=== PATIENT | female | born 1995 | race Caucasian/White ===

== ENCOUNTER 2016-11-14 15:45 | Emergency (ER) | payer MEDICAID ==
[~2016-11-14] VITALS: Ht 165.1 cm; Wt 60.0 kg
[2016-11-14 15:48] VITALS: BP 151/69; PULSE 130; RESP 20; TEMP 100.2; O2SAT 98
--- NOTE | 2016-11-14 15:53 | PD ---
Physical Exam Date Seen by Provider: Nov 14, 2016 Time Seen by Provider: 15:48 MDM Supervised Visit with SHERRILL: No Narrative Course 20-year-old female, 15 weeks by US, presents to the ED for evaluation of fever and back pain since last night. Endorses cough, spoke with OB who prescribed azithromycin. She took a single dose before presentation. Denies urinary symptoms. Patient states last temp was 101 at home. Took one dose of Tylenol but states that she threw it up Vitals reviewed. Patient seen in triage, awaiting priority bed placement. Kiera Sanchez Nov 14, 2016 15:53
[2016-11-14 16:00] VITALS: BP 112/68; PULSE 120; RESP 15; O2SAT 98
[2016-11-14] MEDS ORDERED: SODIUM CHLOR 0.9% 1000 ML INJ 1,000 ML IV ONE ×2 (16:18→19:30)
[2016-11-14] MEDS ORDERED: SODIUM CHLOR 0.9% 1000 ML INJ 800 ML IV ONE (16:18)
--- NOTE | 2016-11-14 16:28 | PD ---
HPI . Fever and back pain Chief Complaint: Fever Time Seen by Provider: 16:18 Travel History International Travel<30 days: No Contact w/Intl Traveler<30days: No Traveled to known affect area: No History of Present Illness HPI This patient presents with fever and low back pain. Onset was last night. MAXIMUM TEMPERATURE was 101. She also reports a sore throat and cough. The cough is been nonproductive. She tried to take Tylenol for fever but subsequently vomited the Tylenol. Pertinent history is that she is 15 weeks . Patient denies any malodorous vaginal discharge. She denies any urinary tract symptoms. [facility] Past Medical History Medical History: Denies Significant Hx Diminished Hearing: No Tetanus Vaccination: < 5 Years ?: Social History Alcohol Use: No Tobacco Use: No Substance Use: No Allergies-Medications (Allergen,Severity, Reaction): Coded Allergies: No Known Allergies (Unverified , 11/14/16) Reported Meds & Prescriptions Reported Meds & Active Scripts Active Zofran (Ondansetron HCl) 4 Mg Tab 4 Mg PO Q6HR PRN Review of Systems Except as stated in HPI: all other systems reviewed are Neg General / Constitutional: Positive: Fever, Chills HENT: Positive: Sore Throat Respiratory: Positive: Cough Gastrointestinal: Positive: Nausea, Vomiting, Diarrhea, No: Abdominal Pain Genitourinary: No: Urgency, Frequency, Dysuria, Discharge Physical Exam Narrative GENERAL: Patient is awake and alert and does not appear to be in any distress. SKIN: warm/dry. HEAD: Normocephalic. Atraumatic. EYES: Pupils equal and round. No scleral icterus. No injection or drainage. ENT: No nasal bleeding or discharge. Mucous membranes pink and moist. Oropharynx has no erythema. No tonsillar enlargement or exudate. NECK: Trachea midline. Full range of motion without pain. No cervical lymphadenopathy. CARDIOVASCULAR: Sinus tachycardia. No murmurs. RESPIRATORY: No accessory muscle use. Clear to auscultation. Breath sounds equal bilaterally. GASTROINTESTINAL: Abdomen soft. Nontender. Bowel sounds present. Nondistended. Gravid. MUSCULOSKELETAL: No obvious deformities. NEUROLOGICAL: Awake and alert. No obvious cranial nerve deficits. Motor grossly within normal limits. Normal speech. PSYCHIATRIC: Appropriate mood and affect; insight and judgment normal. Data Data Last Documented VS Vital Signs Date Time Temp Pulse Resp B/P (MAP) Pulse Ox O2 Delivery O2 Flow Rate FiO2 11/14/16 16:00 120 15 112/68 (83) 98 Room Air 11/14/16 15:48 100.2 Orders Orders Complete Blood Count With Diff (11/14/16 16:18) Comprehensive Metabolic Panel (11/14/16 16:18) Lactic Acid Sepsis Protocol (11/14/16 16:18) Urinalysis - C+S If Indicated (11/14/16 16:18) Blood Culture (11/14/16 16:18) Iv Access Insert/Monitor (11/14/16 16:18) Acetaminophen Supp (Tylenol Supp) (11/14/16 16:30) Ondansetron Inj (Zofran Inj) (11/14/16 16:30) Sodium Chlor 0.9% 1000 Ml Inj (Ns 1000 M (11/14/16 16:18) Sodium Chlor 0.9% 1000 Ml Inj (Ns 1000 M (11/14/16 16:18) Influenzae A/B Antigen (11/14/16 16:25) Heart Tones (11/14/16 16:25) Group A Rapid Strep Screen (11/14/16 17:32) Strep Culture (Group A) (11/14/16 17:35) Labs Laboratory Tests Test 11/14/16 16:20 11/14/16 17:10 White Blood Count 14.5 TH/MM3 Red Blood Count 3.94 MIL/MM3 Hemoglobin 12.0 GM/DL Hematocrit 34.4 % Mean Corpuscular Volume 87.2 FL Mean Corpuscular Hemoglobin 30.4 PG Mean Corpuscular Hemoglobin Concent 34.9 % Red Cell Distribution Width 13.4 % Platelet Count 284 TH/MM3 Mean Platelet Volume 7.6 FL Neutrophils (%) (Auto) 91.7 % Lymphocytes (%) (Auto) 3.0 % Monocytes (%) (Auto) 4.7 % Eosinophils (%) (Auto) 0.4 % Basophils (%) (Auto) 0.2 % Neutrophils # (Auto) 13.3 TH/MM3 Lymphocytes # (Auto) 0.4 TH/MM3 Monocytes # (Auto) 0.7 TH/MM3 Eosinophils # (Auto) 0.1 TH/MM3 Basophils # (Auto) 0.0 TH/MM3 CBC Comment DIFF FINAL Differential Comment Blood Urea Nitrogen 7 MG/DL Creatinine 0.45 MG/DL Random Glucose 86 MG/DL Total Protein 7.5 GM/DL Albumin 3.8 GM/DL Calcium Level 9.4 MG/DL Alkaline Phosphatase 62 U/L Aspartate Amino Transf (AST/SGOT) 14 U/L Alanine Aminotransferase (ALT/SGPT) 17 U/L Total Bilirubin 0.4 MG/DL Sodium Level 134 MEQ/L Potassium Level 3.9 MEQ/L Chloride Level 102 MEQ/L Carbon Dioxide Level 24.5 MEQ/L Anion Gap 8 MEQ/L Estimat Glomerular Filtration Rate 179 ML/MIN Lactic Acid Level 0.7 mmol/L Urine Color YELLOW Urine Turbidity CLEAR Urine pH 6.5 Urine Specific [place] 1.029 Urine Protein TRACE mg/dL Urine Glucose (UA) NEG mg/dL Urine Ketones 150 mg/dL Urine Occult Blood NEG Urine Nitrite NEG Urine Bilirubin NEG Urine Urobilinogen 2.0 MG/DL Urine Leukocyte Esterase NEG Urine WBC 1 /hpf Urine Squamous Epithelial Cells 5 /hpf Urine Mucus FEW /lpf Microscopic Urinalysis Comment CATH-CULT NOT IND MDM Medical Decision Making Medical Screen Exam Complete: Yes Emergency Medical Condition: Yes Differential Diagnosis Differential diagnosis of fever includes but is not limited to viral illness, strep throat, otitis media, pneumonia, sepsis, UTI Narrative Course This is a patient who presents with a fever. I have initiated a septic workup minus the chest x-ray. CBC & BMP Diagram 11/14/16 16:20 Total Protein 7.5, Albumin 3.8, Calcium Level 9.4, Alkaline Phosphatase 62, Aspartate Amino Transf (AST/SGOT) 14 L, Alanine Aminotransferase (ALT/SGPT) 17, Total Bilirubin 0.4 UA is negative for infection. Strep and flu screens are negative. The patient has received 1 L of fluid so far. She is still tachycardic at 130. A second bag of fluid has been ordered. Her care will be turned over to the oncoming provider pending fluids and reduction of heart rate. If needed, her OB is [place] [employer] Diagnosis Primary Impression: Fever Qualified Codes: R50.9 - Fever, unspecified Additional Impression: Qualified Codes: Z3A.15 - 15 weeks gestation of Patient Instructions: Fever in Adults (ED), General Instructions Additional Instructions: You may use Tylenol suppositories if needed to control fever. Drink lots of fluids. Continue the Zithromax. Scripts Ondansetron (Zofran) 4 Mg Tab 4 MG PO Q6HR Y for NAUSEA OR VOMITING, #10 TAB 0 Refills Prov: Pratima Núñez MD 11/14/16 Disposition: 01 DISCHARGE HOME Condition: Stable Pratima Núñez MD Nov 14, 2016 16:28
[2016-11-14] MEDS ORDERED: ACETAMINOPHEN 650 MG SUPP RECTAL ONE (16:30)
[2016-11-14] MEDS ORDERED: ONDANSETRON HCL 4 MG/2 ML VIAL IV PUSH ONE (16:30)
[2016-11-14 17:45] LABS: BLOOD, URINE NEG (NEG); COMMENT (UR) CATH-CULT NOT IND; CULTURE IF INDICATED CATH CULTURE NOT IND; GLUCOSE,URINE NEG (NEG); KETONE, URINE 150 mg/dL (NEG); MUCUS URINE FEW /lpf (OCC); NITRITE,URINE NEG (NEG); PH, URINE 6.5 (5.0-8.5); SQUAMOUS EPITHELIAL CELL URINE 5 /hpf (0-5); URINE COLOR YELLOW (YELLW/STRAW)
[2016-11-14 18:01] LABS: AUTOMATED NEUTROPHIL # 13.3 TH/MM3 (1.8-7.7); BASOPHIL % 0.2 % (0.0-2.0); EOSINOPHIL # 0.1 TH/MM3 (0-0.4); EOSINOPHIL % 0.4 % (0.0-4.0); HEMATOCRIT 34.4 % (35.0-46.0); HEMO FLAGS DIFF FINAL; LYMPHOCYTE # 0.4 TH/MM3 (1.0-4.8); MEAN CELL VOLUME 87.2 FL (80.0-100.0); MEAN CORPUSCULAR HEMOGLOBIN 30.4 PG (27.0-34.0); MEAN CORPUSCULAR HGB CONC 34.9 % (32.0-36.0); MONO % 4.7 % (0.0-8.0); NEUT % 91.7 % (16.0-70.0); PLATELET COUNT 284 TH/MM3 (150-450); RED BLOOD COUNT 3.94 MIL/MM3 (4.00-5.30); RED CELL DISTRIBUTION WIDTH 13.4 % (11.6-17.2); WHITE BLOOD COUNT 14.5 TH/MM3 (4.0-11.0)
[2016-11-14 18:18] LABS: ALT (GPT) 17 U/L (9-42); ANION GAP 8 MEQ/L (5-15); AST (GOT) 14 U/L (16-38); BICARBONATE 24.5 MEQ/L (21.0-32.0); BLOOD UREA NITROGEN 7 MG/DL (7-18); CHLORIDE 102 MEQ/L (98-107); GLOMERULAR FILTRATION RATE 179 ML/MIN (>89); POTASSIUM 3.9 MEQ/L (3.5-5.1); SODIUM (NA) 134 MEQ/L (136-145)
[2016-11-14 18:21] LABS: ALKALINE PHOSPHATASE 62 U/L (45-117); TOTAL BILIRUBIN ADULT 0.4 MG/DL (0.2-1.0)
[2016-11-14] MEDS ORDERED: ZOFR4TAB PO (18:27)
[2016-11-14 18:34] VITALS: PULSE 123; RESP 16; TEMP 99.4
--- NOTE | 2016-11-14 19:34 | PD ---
Data Data Last Documented VS Vital Signs Date Time Temp Pulse Resp B/P (MAP) Pulse Ox O2 Delivery O2 Flow Rate FiO2 11/14/16 20:27 113 18 88/51 (63) 98 Room Air 11/14/16 18:34 99.4 Orders Orders Complete Blood Count With Diff (11/14/16 16:18) Comprehensive Metabolic Panel (11/14/16 16:18) Lactic Acid Sepsis Protocol (11/14/16 16:18) Urinalysis - C+S If Indicated (11/14/16 16:18) Blood Culture (11/14/16 16:18) Iv Access Insert/Monitor (11/14/16 16:18) Acetaminophen Supp (Tylenol Supp) (11/14/16 16:30) Ondansetron Inj (Zofran Inj) (11/14/16 16:30) Sodium Chlor 0.9% 1000 Ml Inj (Ns 1000 M (11/14/16 16:18) Sodium Chlor 0.9% 1000 Ml Inj (Ns 1000 M (11/14/16 16:18) Influenzae A/B Antigen (11/14/16 16:25) Heart Tones (11/14/16 16:25) Group A Rapid Strep Screen (11/14/16 17:32) Strep Culture (Group A) (11/14/16 17:35) Sodium Chlor 0.9% 1000 Ml Inj (Ns 1000 M (11/14/16 19:30) Electrocardiogram (11/14/16 ) Labs Laboratory Tests Test 11/14/16 16:20 11/14/16 17:10 White Blood Count 14.5 TH/MM3 Red Blood Count 3.94 MIL/MM3 Hemoglobin 12.0 GM/DL Hematocrit 34.4 % Mean Corpuscular Volume 87.2 FL Mean Corpuscular Hemoglobin 30.4 PG Mean Corpuscular Hemoglobin Concent 34.9 % Red Cell Distribution Width 13.4 % Platelet Count 284 TH/MM3 Mean Platelet Volume 7.6 FL Neutrophils (%) (Auto) 91.7 % Lymphocytes (%) (Auto) 3.0 % Monocytes (%) (Auto) 4.7 % Eosinophils (%) (Auto) 0.4 % Basophils (%) (Auto) 0.2 % Neutrophils # (Auto) 13.3 TH/MM3 Lymphocytes # (Auto) 0.4 TH/MM3 Monocytes # (Auto) 0.7 TH/MM3 Eosinophils # (Auto) 0.1 TH/MM3 Basophils # (Auto) 0.0 TH/MM3 CBC Comment DIFF FINAL Differential Comment Blood Urea Nitrogen 7 MG/DL Creatinine 0.45 MG/DL Random Glucose 86 MG/DL Total Protein 7.5 GM/DL Albumin 3.8 GM/DL Calcium Level 9.4 MG/DL Alkaline Phosphatase 62 U/L Aspartate Amino Transf (AST/SGOT) 14 U/L Alanine Aminotransferase (ALT/SGPT) 17 U/L Total Bilirubin 0.4 MG/DL Sodium Level 134 MEQ/L Potassium Level 3.9 MEQ/L Chloride Level 102 MEQ/L Carbon Dioxide Level 24.5 MEQ/L Anion Gap 8 MEQ/L Estimat Glomerular Filtration Rate 179 ML/MIN Lactic Acid Level 0.7 mmol/L Urine Color YELLOW Urine Turbidity CLEAR Urine pH 6.5 Urine Specific [place] 1.029 Urine Protein TRACE mg/dL Urine Glucose (UA) NEG mg/dL Urine Ketones 150 mg/dL Urine Occult Blood NEG Urine Nitrite NEG Urine Bilirubin NEG Urine Urobilinogen 2.0 MG/DL Urine Leukocyte Esterase NEG Urine WBC 1 /hpf Urine Squamous Epithelial Cells 5 /hpf Urine Mucus FEW /lpf Microscopic Urinalysis Comment CATH-CULT NOT IND MDM Supervised Visit with SHERRILL: No Interpretation(s) My review of EKG: Sinus tachycardia rate of 116, normal axis, normal intervals, nonspecific T-wave changes, no definite evidence of acute ischemia. CBC remarkable for mild leukocytosis. CMP generally unremarkable. UA remarkable for some ketones, otherwise negative. Narrative Course 20-year-old young woman with cough cold symptoms fever and tachycardia. Looks well. I don't see any evidence of DVT or PE. She looks better. Heart rate still 1 teens to 120s. She appears well-hydrated. She is on antibiotics already. I think she stay for discharge. Recommend she follow up closely with her OB doctor on Wednesday. I also cautioned them that if she is worsening at all , to have a lower threshold for returning to the emergency department. Patient and family are agreeable. Diagnosis Primary Impression: Fever Qualified Codes: R50.9 - Fever, unspecified Additional Impression: Qualified Codes: Z3A.15 - 15 weeks gestation of Patient Instructions: General Instructions, Fever in Adults (ED) Departure Forms: Tests/Procedures Additional Instruction: You may use Tylenol suppositories if needed to control fever. Drink lots of fluids. Continue the Zithromax. Scripts Ondansetron (Zofran) 4 Mg Tab 4 MG PO Q6HR Y for NAUSEA OR VOMITING, #10 TAB 0 Refills Prov: Pratima Núñez MD 11/14/16 Disposition: 01 DISCHARGE HOME Condition: Stable Dimitri Peña MD Nov 14, 2016 19:34
[2016-11-14 20:27] VITALS: BP 88/51; PULSE 113; RESP 18; O2SAT 98
--- NOTE | 2016-11-14 22:45 | EKG ---
Date Performed: 11/14/2016 Time Performed: 19:30:37 PTAGE: 20 years EKG: SINUS TACHYCARDIA NONSPECIFIC T-WAVE ABNORMALITY ABNORMAL ECG NO PREVIOUS TRACING DOCTOR: Markus Orellana Interpretating Date/Time 11/14/2016 22:44:23
== END 2016-11-14 20:38 | disposition home or self-care (01) ==
LOC: NEPC 15:45
DX: O26.892 Other specified pregnancy related conditions, second trimester (principal); R50.9 Fever, unspecified; J02.9 Acute pharyngitis, unspecified; R05 Cough; R11.2 Nausea with vomiting, unspecified; R19.7 Diarrhea, unspecified; R00.0 Tachycardia, unspecified; M54.5 Low back pain; Z3A.15 15 weeks gestation of pregnancy
CPT/HCPCS: 80053; 81001; 83605; 85025; 87040; 87081; 87804; 87880; 93005; 96361; 96374; 99284; J2405; J7030

== ENCOUNTER 2017-04-15 16:41 | Emergency (ER) | payer MEDICAID ==
[~2017-04-15 16:41] MED LIST: ZOFR4TAB PO
[2017-04-15 17:38] VITALS: TEMP 98.1
[2017-04-15 17:39] VITALS: BP 119/68; PULSE 85; RESP 16
--- NOTE | 2017-04-15 18:13 | PD ---
HPI Chief Complaint cramping, hip pain Date Seen: Apr 15, 2017 Time Seen: 18:08 Travel History International Travel<30 Days: No Contact w/Intl Traveler<30Days: No Known Affected Area: No History of Present Illness HPI 21y/o G1 @ 36.3wks. She has PNC with Dr. Beckford. She presents today reporting 3d of cramping and pain in her hips today. She denies ctx, LOF, or VB. +FM. Weeks Gestation: 36 Para: 0 : 1 History Past Medical History Medical History: Denies Significant Hx Past Surgical History Narrative Surgical hand surgery wisdom teeth extraction Family History Family History: Negative Social History Alcohol Use: No Tobacco Use: No Substance Abuse: No Allergies-Medications (Allergen,Severity, Reaction): Coded Allergies: No Known Allergies (Unverified , 11/14/16) Home Meds Active Scripts Ondansetron (Zofran) 4 Mg Tab, 4 MG PO Q6HR Y for NAUSEA OR VOMITING, #10 TAB 0 Refills Prov:Pratima Núñez MD 11/14/16 Review of Systems Except as stated in HPI: all other systems reviewed are Neg Physical Exam Vital Signs Date Time Temp Pulse Resp B/P (MAP) Pulse Ox O2 Delivery O2 Flow Rate FiO2 04/15/17 17:39 85 119/68 (85) 04/15/17 17:39 16 04/15/17 17:38 98.1 Narrative General: well developed, well nourished, no acute distress HEENT: normocephalic atraumatic, extraocular movements intact, neck supple Abdomen: soft, gravid, nontender, nondistended Uterus: fundus near term Extremities: full range of motion Skin: normal coloration, no rashes, no suspicious skin lesions noted Neurologic: cranial nerves 2-12 grossly intact, normal muscle tone, normal gait Psychiatric: normal mood and affect, appropriate FHTs: 130s, +accels, no decels, moderate variability, reactive [place]: ctx q4m (not felt by pt) Cvx: 0.5/50/-3 Data Data Vital Signs Reviewed: Yes Orders Orders Vital Signs (Adult) .ON ADMISSION (04/15/17 17:25) ^ Labor Status (04/15/17 17:25) Urinalysis - C+S If Indicated (04/15/17 17:25) ^ Non Stress Test (04/15/17 17:25) MDM Plan 21y/o G1 @ 36.3wks with cramping. -- FHTs cat 1 -- toco with ctx q3-4m -- cvx 0.5/50/-3 -- UA neg for UTI Dx: abeba reina ctx Dispo: d/c home with precautions Diagnosis Diagnosis: Primary Impression: 36 weeks gestation of Additional Impression: Cramping affecting , antepartum Will Santo MD Apr 15, 2017 18:13
== END 2017-04-15 18:35 | disposition home or self-care (01) ==
LOC: HOBED 16:41
DX: O47.03 False labor before 37 completed weeks of gestation, third trimester (principal); Z3A.36 36 weeks gestation of pregnancy
CPT/HCPCS: 59025

== ENCOUNTER 2017-05-12 17:41 | Inpatient (IN) | payer MEDICAID ==
[~2017-05-12] VITALS: Ht 165.1 cm; Wt 79.8 kg
[2017-05-12] MEDS ORDERED: SODIUM CHLOR 0.9% 1000 ML INJ 1,000 ML OTHER PRN (17:56)
[2017-05-12] MEDS ORDERED: LACTATED RINGER'S 1000 ML INJ 1,000 ML IV PRN (17:56)
[2017-05-12] MEDS ORDERED: OXYTOCIN 30 UNITS-500ML PREMIX 500 ML IV ONE (18:00)
[2017-05-12] MEDS ORDERED: LIDOCAINE HCL 1% 50 ML VIAL I-DERMAL PRN (18:00)
[2017-05-12] MEDS ORDERED: LIDOCAINE HCL 1% 50 ML VIAL INFIL PRN (18:00)
[2017-05-12] MEDS ORDERED: DINOPROSTONE 10 MG VAG INSERT VAGINAL ONE (18:00)
[2017-05-12] MEDS ORDERED: CITRIC ACID-SODIUM CITRATE LIQ 30 ML UDC PO SCH (18:00)
[2017-05-12] MEDS ORDERED: SODIUM CHLORID 0.9% 500 ML INJ 500 ML IV PRN (18:00)
[2017-05-12] MEDS ORDERED: MINERAL OIL 10 ML VIAL TOPICAL PRN (18:00)
[2017-05-12] MEDS ORDERED: SODIUM CHLORIDE 0.9% FLUSH 10 ML FLUSH IV FLUSH PRN (18:00)
[2017-05-12] MEDS ORDERED: ONDANSETRON HCL 4 MG/2 ML VIAL IV PUSH PRN (18:00)
[2017-05-12] MEDS: LACTATED RINGER'S 1000 ML INJ 1,000 ML IV SCH ×2 (18:10→23:21)
[2017-05-12] MEDS ORDERED: SODIUM CHLOR 0.9% 1000 ML INJ 1,000 ML IV PRN (18:16)
[2017-05-12 18:18] VITALS: BP 77/54; PULSE 75
[2017-05-12 18:19] VITALS: RESP 20; TEMP 98.4
[2017-05-12] MEDS ORDERED: PREN29TA PO (18:51)
[2017-05-12 19:07] LABS: AUTOMATED NEUTROPHIL # 10.6 TH/MM3 (1.8-7.7); BASOPHIL # 0.1 TH/MM3 (0-0.2); BASOPHIL % 0.4 % (0.0-2.0); EOSINOPHIL # 0.1 TH/MM3 (0-0.4); EOSINOPHIL % 0.5 % (0.0-4.0); HEMOGLOBIN 11.3 GM/DL (11.6-15.3); LYMPH % 16.9 % (9.0-44.0); LYMPHOCYTE # 2.4 TH/MM3 (1.0-4.8); MEAN CELL VOLUME 86.8 FL (80.0-100.0); MEAN CORPUSCULAR HEMOGLOBIN 29.7 PG (27.0-34.0); MEAN CORPUSCULAR HGB CONC 34.2 % (32.0-36.0); MEAN PLATELET VOLUME 7.9 FL (7.0-11.0); MONO % 6.7 % (0.0-8.0); MONOCYTE # 0.9 TH/MM3 (0-0.9); NEUT % 75.5 % (16.0-70.0); PLATELET COUNT 333 TH/MM3 (150-450); RED CELL DISTRIBUTION WIDTH 14.4 % (11.6-17.2)
[2017-05-12 19:15] LABS: AMORPHOUS SEDIMENT, URINE RARE; BACTERIA, URINE RARE /hpf; BILIRUBIN, URINE NEG (NEG); BLOOD, URINE NEG (NEG); GLUCOSE,URINE NEG (NEG); KETONE, URINE NEG (NEG); MUCUS URINE FEW /lpf (OCC); NITRITE,URINE NEG (NEG); SQUAMOUS EPITHELIAL CELL URINE 12 /hpf (0-5); URINE COLOR YELLOW (YELLW/STRAW); URINE LEUKOCYTE ESTERASE MOD (NEG)
[2017-05-12] MEDS: SODIUM CHLORIDE 0.9% FLUSH 10 ML FLUSH IV FLUSH SCH (19:45)
[2017-05-12 23:20] VITALS: BP 132/65; PULSE 79
[2017-05-12 23:21] VITALS: RESP 17; TEMP 98
[2017-05-13] VITALS (19 sets, daily range): BP systolic 104–126; BP diastolic 46–63; PULSE 57–66; RESP 16–19; TEMP 97.6–98.4
--- NOTE | 2017-05-13 08:17 | MH ---
cc: Kathi Beckford MD DATE OF ADMISSION: 05/12/2017 HISTORY OF PRESENT ILLNESS: She is 21 years old, 1, para 0 intrauterine at 40 weeks and 2 days. On ultrasound today, echogenic amniotic fluid, questionable for meconium, as well as echogenic material within the stomach and bowels on ultrasound. care has been with [place] [employer], unremarkable. Blood type is AB positive. She is group B strep negative. GCT was 109. PAST MEDICAL HISTORY: She denies hypertension, diabetes or asthma. PAST SURGICAL HISTORY: She had hand surgery and wisdom teeth removed. MEDICATIONS: She takes vitamins and Valtrex. ALLERGIES: SHE HAS NO KNOWN DRUG ALLERGIES. PHYSICAL EXAMINATION: VITAL SIGNS: Blood pressure is 110/62. She is 176 pounds. HEAD: Within normal limits. HEART: Within normal limits. CHEST: Within normal limits. LUNGS: Within normal limits. ABDOMEN: Soft, nontender, gravid. PELVIC: She is 1 cm dilated, 50% effaced, -1 station. EXTREMITIES: No edema, cyanosis, clubbing, nontender. ASSESSMENT AND PLAN: She is 21 years old, 1, para 0 intrauterine at 40 weeks and 2 days with echogenic amniotic fluid and echogenic material within the bowels, questionable for meconium, post-dates. Risks, benefits, alternatives of Cervidil induction have been explained to the patient. All of her questions have been answered and she will be admitted at 6 p.m. for Cervidil induction. MD GRANT Carreon/SB , 04:02 PM , 04:18 PM
--- NOTE | 2017-05-13 08:32 | HHI.PR ---
R&D ENGINEER Note Note S: doing well, some cramping, continued leakage of clear fluid O: Cervix: 1/60/-2/firm/mid = BS 5 FHTs: 130s moderate variability, accelerations present, no decelerations TOCO: rare contractions A/P: 21 yo G1 at 40w3d by L/11 here for IOL for suspected meconium and echogenic bowel on US yesterday? 1. IUP: Cat 1 tracing, continuous EFM and TOCO - Cephalic, GBS neg, EFW 7.5lbs 2. IOL: s/p cervidil overnight, s/p SROM today (0700, clear), BS of 5, continue cervical ripening with PO henrryo Yang Pinzon MD May 13, 2017 08:32
[2017-05-13] MEDS ORDERED: MISOPROSTOL 100 MCG TAB PO SCH (08:45)
[2017-05-13] MEDS ORDERED: PILL SPLITTER OTHER PRN (09:00)
[2017-05-13] MEDS: SODIUM CHLORIDE 0.9% FLUSH 10 ML FLUSH IV FLUSH SCH ×2 (09:00→21:37)
[2017-05-13] MEDS: MISOPROSTOL 25 MCG TAB PO SCH ×4 (09:02→21:00)
[2017-05-13] MEDS: LACTATED RINGER'S 1000 ML INJ 1,000 ML IV SCH (11:45)
--- NOTE | 2017-05-13 18:04 | HHI.PR ---
AUTOMATIC EDGER Note Note Care update: Spoke to nursing around 30 minutes ago, pt slightly more thinned out ~70-80%, still 1-2cm, agnes infrequently, category 1 tracing, will continue with 3rd dose of PO miso and then begin pit following this. Yang Pinzon MD May 13, 2017 18:04
[2017-05-13] MEDS ORDERED: OXYTOCIN 30 UNITS-500ML PREMIX 500 ML IV PRN (18:15)
[2017-05-14] VITALS (49 sets, daily range): BP systolic 89–134; BP diastolic 56–90; PULSE 20–243; RESP 17–20; TEMP 97.6–99.2; O2SAT 99–100
[2017-05-14] MEDS: LACTATED RINGER'S 1000 ML INJ 1,000 ML IV SCH ×2 (02:12→06:59)
[2017-05-14] MEDS ORDERED: fentaNYL 2MCG-BUPIV 0.125% INJ 100 ML ONE (03:38)
[2017-05-14] MEDS ORDERED: ePHEDrine/NS 25 MG/5 ML SYRINGE ONE (03:38)
[2017-05-14] MEDS ORDERED: NO SYSTEM NARCOTICS PRN (04:00)
[2017-05-14] MEDS ORDERED: fentaNYL 2MCG-BUPIV 0.125% 100 ML EPIDURAL SCH (04:00)
[2017-05-14] MEDS ORDERED: DO NOT ADMINISTER ANTICOAGULANTS PRN (04:00)
[2017-05-14] MEDS ORDERED: ePHEDrine/NS 25 MG/5 ML SYRINGE IV PUSH PRN (04:45)
--- NOTE | 2017-05-14 08:15 | PD.LABORPN ---
Subjective Subjective pt comfortable with epidural, on pitocin, agnes well Objective Vital Signs Vital Signs Date Time Temp Pulse Resp B/P (MAP) Pulse Ox O2 Delivery O2 Flow Rate FiO2 05/14/17 07:31 62 100/64 (76) 05/14/17 07:14 98.3 18 05/14/17 07:00 61 114/69 (84) 05/14/17 06:30 62 108/62 (77) 05/14/17 06:00 56 105/57 (73) 05/14/17 05:30 68 111/90 (97) 05/14/17 05:00 59 116/65 (82) 05/14/17 04:38 18 05/14/17 04:30 68 119/68 (85) 05/14/17 04:26 98.1 17 05/14/17 04:25 69 05/14/17 04:25 99 05/14/17 04:25 88 124/69 (87) 05/14/17 04:20 71 120/75 (90) 05/14/17 04:20 100 05/14/17 04:20 73 05/14/17 04:15 76 134/74 (94) 05/14/17 04:15 87 100 05/14/17 04:11 88 05/14/17 04:10 73 99 05/14/17 04:06 80 134/77 (96) 05/14/17 04:05 99 05/14/17 04:05 71 05/14/17 04:00 66 124/75 (91) 05/14/17 04:00 68 05/14/17 04:00 100 05/14/17 03:57 67 124/72 (89) 05/14/17 03:54 61 118/63 (81) 05/14/17 02:21 98.0 Objective Pelvic Exam: Cervix: [-] Dilatation: [-] 3-4 Effacement: [-] 80 Station: [-] -2 per RN Presentation: [-] vtx Membranes: [intact or ruptured] srom yest 0700 Uterine Contractions: [-] q 3-4min FHT's: Category: [-] 1 Baseline: [-] Reactive: [-] Variability: [-] good Decels: [-] Weeks Gestation: 40 Gest Age Assessed Date: May 14, 2017 Gest Age Assessed Time: 08:13 Pt started active labor?: Yes Active labor start date: May 13, 2017 Active labor start time: 08:13 Medical induction of labor?: Yes Medical induction start date: May 12, 2017 Medical induction start time: 21:00 Artificial rupture of membrane: No Assessment/Plan Problem List: (1) 40 weeks gestation of ICD Codes: Z3A.40 - 40 weeks gestation of Assessment and Plan IUP at 40+ wks with echogenic amniotic fluid, echogenic bowel on US s/p cervidil , misoprostil, now on pit with epid, agnes GBBS neg anticipated Kathi Beckford MD May 14, 2017 08:15
[2017-05-14] MEDS: SODIUM CHLORIDE 0.9% FLUSH 10 ML FLUSH IV FLUSH SCH (09:00)
--- NOTE | 2017-05-14 09:47 | PD.LABORPN ---
Subjective Subjective comfortable with epidural Objective Vital Signs Vital Signs Date Time Temp Pulse Resp B/P (MAP) Pulse Ox O2 Delivery O2 Flow Rate FiO2 05/14/17 09:14 98.0 05/14/17 09:14 18 05/14/17 09:00 52 109/58 (75) 05/14/17 08:30 64 113/74 (87) 05/14/17 08:11 18 05/14/17 08:00 61 107/57 (74) 05/14/17 07:31 62 100/64 (76) 05/14/17 07:14 98.3 18 05/14/17 07:00 61 114/69 (84) 05/14/17 06:30 62 108/62 (77) 05/14/17 06:00 56 105/57 (73) 05/14/17 05:30 68 111/90 (97) 05/14/17 05:00 59 116/65 (82) 05/14/17 04:38 18 05/14/17 04:30 68 119/68 (85) 05/14/17 04:26 98.1 17 05/14/17 04:25 69 05/14/17 04:25 99 05/14/17 04:25 88 124/69 (87) 05/14/17 04:20 71 120/75 (90) 05/14/17 04:20 100 05/14/17 04:20 73 05/14/17 04:15 76 134/74 (94) 05/14/17 04:15 87 100 05/14/17 04:11 88 05/14/17 04:10 73 99 05/14/17 04:06 80 134/77 (96) 05/14/17 04:05 99 05/14/17 04:05 71 05/14/17 04:00 66 124/75 (91) 05/14/17 04:00 68 05/14/17 04:00 100 05/14/17 03:57 67 124/72 (89) 05/14/17 03:54 61 118/63 (81) 05/14/17 02:21 98.0 Objective strip category 1 rim EFW 7 1/2 pelvis clincially adequate UC regular on pitocin anticipate Weeks Gestation: 40 Gest Age Assessed Date: May 14, 2017 Gest Age Assessed Time: 08:13 Pt started active labor?: Yes Active labor start date: May 13, 2017 Active labor start time: 08:13 Medical induction of labor?: Yes Medical induction start date: May 12, 2017 Medical induction start time: 21:00 Artificial rupture of membrane: No Assessment/Plan Problem List: (1) 40 weeks gestation of ICD Codes: Z3A.40 - 40 weeks gestation of Makenzie Davenport MD May 14, 2017 09:47
[2017-05-14] MEDS ORDERED: BUPIVACAINE HCL PF 0.25% 10 ML VIAL ONE (12:35)
[2017-05-14] MEDS ORDERED: LIDOCAINE HCL 1% PF 5 ML AMPULE ONE (13:28)
[2017-05-14] MEDS ORDERED: MEPERIDINE HCL 50 MG/ML VIAL ONE (13:28)
--- NOTE | 2017-05-14 13:49 | PD.OB.DELI ---
Weeks gestation: 40 Gest age assessed date: May 14, 2017 Gest age assessed time: 08:13 Pt started active labor?: Yes Active labor start date: May 13, 2017 Active labor start time: 08:13 Medical induction of labor?: Yes Medical induction start date: May 12, 2017 Medical induction start time: 21:00 Artificial rupture of membrane: No Anesthesia: Epidural Episiotomy: Midline Vaginal Delivery: Normal, Vacuum Presentation: Occiput anterior Nuchal Cord: None Delayed cord clamping (45 sec): Yes : Male Delivery date: May 14, 2017 Delivery time: 13:47 One Minute : 7 Five Minute : 9 Weight: ~7 1/2 Placenta: Spontaneous delivery Laceration: 4 deg, Into rectum Repair: Vicryl interrupted, Vicryl running Estimated blood loss: 200 Additional Information terminal meconium straight forward fourth degree repair Makenzie Davenport MD May 14, 2017 13:49
[2017-05-14] MEDS ORDERED: WITCH HAZEL 50%/GLYCERIN 12.5% 40 PAD JAR TOPICAL PRN (14:00)
[2017-05-14] MEDS ORDERED: ONDANSETRON ODT 4 MG TAB PO PRN (14:00)
[2017-05-14] MEDS ORDERED: ALUMINUM/MAGNESIUM/SIMETH 30 ML CUP PO PRN (14:00)
[2017-05-14] MEDS ORDERED: SODIUM CHLORIDE 0.9% FLUSH 10 ML FLUSH IV FLUSH PRN (14:00)
[2017-05-14] MEDS ORDERED: OXYTOCIN 30 UNITS-500ML PREMIX 500 ML IV SCH (14:00)
[2017-05-14] MEDS ORDERED: BENZOCAINE 20% TOPICAL SPRAY 60 ML CAN TOPICAL PRN (14:00)
[2017-05-14] MEDS ORDERED: DIPHTH/TETANUS/ACEL PERTUSSIS (BOOSTER) 0.5 ML VIAL/PFS IM ONE (16:00)
[2017-05-14] MEDS ORDERED: MEASLES, MUMPS, RUBELLA VACCINE 0.5 ML VIAL SQ ONE (16:00)
[2017-05-14] MEDS: ACETAMINOPHEN 325 MG TAB PO PRN (18:10)
[2017-05-14] MEDS: IBUPROFEN 800 MG TAB PO PRN (18:10)
[2017-05-14] MEDS ORDERED: ZOLPIDEM TARTRATE 5 MG TAB PO PRN (21:00)
[2017-05-14] MEDS ORDERED: SODIUM CHLORIDE 0.9% FLUSH 10 ML FLUSH IV FLUSH SCH (21:00)
[2017-05-15] MEDS: IBUPROFEN 800 MG TAB PO PRN ×2 (02:17→19:07)
[2017-05-15] MEDS: ACETAMINOPHEN 325 MG TAB PO PRN ×2 (02:18→19:06)
[2017-05-15 08:00] VITALS: BP 115/73; PULSE 91; RESP 20; TEMP 98.1
--- NOTE | 2017-05-15 12:00 | HHI.OB ---
Subjective Post Day: 1 Remarks Doing well baby is fine Tolerating diet Voiding well Pain is fairly well controlled Objective Vitals/I&O Vital Signs Date Time Temp Pulse Resp B/P (MAP) Pulse Ox O2 Delivery O2 Flow Rate FiO2 05/15/17 08:00 98.1 91 20 115/73 (87) 05/14/17 20:30 98.4 103 18 119/67 (84) 05/14/17 16:30 97.6 69 20 05/14/17 16:30 118/67 (84) 05/14/17 16:00 97.6 20 20 118/67 (84) 99 05/14/17 16:00 69 05/14/17 15:38 18 05/14/17 15:31 87 113/64 (80) 05/14/17 15:16 67 114/79 (91) 05/14/17 15:00 90 112/78 (89) 05/14/17 14:45 75 114/66 (82) 05/14/17 14:30 99.2 05/14/17 14:30 84 89/57 (68) 05/14/17 14:30 18 05/14/17 14:15 86 114/72 (86) 05/14/17 14:02 18 05/14/17 14:01 82 95/65 (75) 05/14/17 13:49 91 114/71 (85) 05/14/17 13:48 18 05/14/17 12:39 70 102/58 (73) 05/14/17 12:39 70 102/58 (73) 05/14/17 12:08 75 109/58 (75) 05/14/17 12:07 98.4 18 Objective Remarks GENERAL: Well-nourished, well-developed patient. CARDIOVASCULAR: Regular rate and rhythm without murmurs, gallops, or rubs. RESPIRATORY: Breath sounds equal bilaterally. No accessory muscle use. ABDOMEN/GI: Abdomen soft, non-tender. Fundus: Firm, non-tender at umbilicus. GENITOURINARY: Light to moderate bleeding. EXTREMITIES: No cyanosis or edema, non-tender, without signs of DVT. Medications and IVs Current Medications Medications (Trade) Dose Ordered Sig/Gabriella Route Start Time Stop Time Status Last Admin Lactated Ringer's 1,000 ml @ 3,000 mls/hr Q20M PRN IV 05/12/17 17:56 Sodium Chloride 1,000 ml @ 100 mls/hr Q10H PRN IV 05/12/17 18:16 (Xylocaine 1% Inj (50 ml)) 0.1 ml UNSCH X1 PRN I-DERMAL 05/12/17 18:00 05/15/17 17:59 (Bicitra Liq) 30 ml SAUSAGE MAKER PO 05/12/17 18:00 05/16/17 17:59 (Zofran Inj) 4 mg Q6H PRN IV PUSH 05/12/17 18:00 05/14/17 03:30 (fentaNYL INJ) 50 mcg Q1H PRN IV PUSH 05/12/17 18:00 05/13/17 12:09 (fentaNYL INJ) 100 mcg Q1H PRN IV PUSH 05/12/17 18:00 05/14/17 02:20 (Muri-Lube Oil) 10 ml UNSCH PRN TOPICAL 05/12/17 18:00 (NS Flush) 2 ml BID IV FLUSH 05/12/17 21:00 (NS Flush) 2 ml UNSCH PRN IV FLUSH 05/12/17 18:00 Lactated Ringer's 1,000 ml @ 125 mls/hr Q8H IV 05/12/17 19:45 05/14/17 06:59 Oxytocin 500 ml @ 0 mls/hr TITRATE PRN IV 05/13/17 18:15 05/13/17 21:37 Fentanyl/ Bupivacaine HCl 100 ml @ 12 mls/hr TITRATE EPIDURAL 05/14/17 04:00 05/14/17 04:38 (NS Flush) 2 ml BID IV FLUSH 05/14/17 21:00 (NS Flush) 2 ml UNSCH PRN IV FLUSH 05/14/17 14:00 (Tylenol) 650 mg Q4H PRN PO 05/14/17 14:00 05/15/17 02:18 (Motrin) 800 mg Q8H PRN PO 05/14/17 14:00 05/15/17 02:17 (Americaine 20% Top Spr) 1 spray Q4H PRN TOPICAL 05/14/17 14:00 (Tucks Pads) 1 applic QID PRN TOPICAL 3/30/18 14:00 (Alma-Colace) 2 tab Q12H PRN PO 05/14/17 14:00 (Ambien) 5 mg HS PRN PO 05/14/17 21:00 (Mag-Al Plus Susp Liq) 15 ml Q8H PRN PO 05/14/17 14:00 (Zofran Odt) 4 mg Q6H PRN PO 05/14/17 14:00 Assessment/Plan Problem List: (1) 40 weeks gestation of ICD Codes: Z3A.40 - 40 weeks gestation of (2) Vaginal delivery ICD Codes: O80 - Encounter for full-term uncomplicated delivery (3) Fourth degree laceration of perineum during delivery, ICD Codes: O70.3 - Fourth degree perineal laceration during delivery Assessment and Plan PPD #1 Doing well S/P 4th degree tear..Discussed in detail today Will get sitz bath and discussed stool softner for one month Will d/c home tomorrow. Pain is now at 5 will order some Mat Angulo MD May 15, 2017 12:00
[2017-05-15] MEDS ORDERED: IBUP1TAB7 PO (12:05)
[2017-05-15] MEDS ORDERED: HYDR-3516 PO (12:05)
--- NOTE | 2017-05-15 12:06 | HHI.DCPOC ---
Discharge Care Plan Diagnosis: (1) Vaginal delivery (2) Fourth degree laceration of perineum during delivery, Report Symptoms to Your Doctor -Temperature above 100.5 degrees -Redness, of incision or excessive or foul smelling drainage -Unusual pain or calf pain -Increased vaginal bleeding -Painful or difficulty urinating -Feelings of extreme sadness or anxiety after 2 weeks Goals to Promote Your Health * To prevent worsening of your condition and complications * To maintain your health at the optimal level Directions to Meet Your Goals Take your medications as prescribed Follow your dietary instruction Follow activity as directed Ensure plenty of rest for recovery Drink fluids for hydration Keep your appointments as scheduled Take your immunizations and boosters as scheduled If your symptoms worsen call your PCP, if no PCP go to Urgent Care Center or Emergency Room Smoking is Dangerous to Your Health. Avoid second hand smoke Call the 24-hour crisis hotline for domestic abuse at Mat Shields MD May 15, 2017 12:06
[2017-05-15] MEDS: ACETAMINOPHEN/HYDROcodone 325 MG/5 MG TAB PO PRN (12:12)
[2017-05-15] MEDS: DOCUSATE SODIUM 50 MG/SENNA 8.6 MG TAB PO PRN (12:12)
[2017-05-15 21:04] VITALS: BP 116/63; PULSE 84; RESP 18; TEMP 98.2
[2017-05-16] MEDS: ACETAMINOPHEN/HYDROcodone 325 MG/5 MG TAB PO PRN ×3 (04:59→12:45)
[2017-05-16] MEDS: IBUPROFEN 800 MG TAB PO PRN ×2 (04:59→12:45)
[2017-05-16 08:00] VITALS: BP 110/68; PULSE 80; RESP 19; TEMP 98
--- NOTE | 2017-05-16 10:40 | HHI.OB ---
Subjective Post Day: 2 Remarks Doing well passing gas and has had a bowel movement nursing Objective Vitals/I&O Vital Signs Date Time Temp Pulse Resp B/P (MAP) Pulse Ox O2 Delivery O2 Flow Rate FiO2 05/16/17 08:00 98.0 80 19 110/68 (82) 05/15/17 21:04 98.2 84 18 116/63 (80) Objective Remarks GENERAL: Well-nourished, well-developed patient. CARDIOVASCULAR: Regular rate and rhythm without murmurs, gallops, or rubs. RESPIRATORY: Breath sounds equal bilaterally. No accessory muscle use. ABDOMEN/GI: Abdomen soft, non-tender. Fundus: Firm, non-tender at umbilicus. GENITOURINARY: Light to moderate bleeding. EXTREMITIES: No cyanosis or edema, non-tender, without signs of DVT. Medications and IVs Current Medications Medications (Trade) Dose Ordered Sig/Gabriella Route Start Time Stop Time Status Last Admin Lactated Ringer's 1,000 ml @ 3,000 mls/hr Q20M PRN IV 05/12/17 17:56 Sodium Chloride 1,000 ml @ 100 mls/hr Q10H PRN IV 05/12/17 18:16 (Bicitra Liq) 30 ml IT COMM[employer]ICATIONS SPECIALIST PO 05/12/17 18:00 05/16/17 17:59 (Zofran Inj) 4 mg Q6H PRN IV PUSH 05/12/17 18:00 05/14/17 03:30 (fentaNYL INJ) 50 mcg Q1H PRN IV PUSH 05/12/17 18:00 05/13/17 12:09 (fentaNYL INJ) 100 mcg Q1H PRN IV PUSH 05/12/17 18:00 05/14/17 02:20 (Muri-Lube Oil) 10 ml UNSCH PRN TOPICAL 05/12/17 18:00 (NS Flush) 2 ml BID IV FLUSH 05/12/17 21:00 (NS Flush) 2 ml UNSCH PRN IV FLUSH 05/12/17 18:00 Lactated Ringer's 1,000 ml @ 125 mls/hr Q8H IV 05/12/17 19:45 05/14/17 06:59 Oxytocin 500 ml @ 0 mls/hr TITRATE PRN IV 05/13/17 18:15 05/13/17 21:37 Fentanyl/ Bupivacaine HCl 100 ml @ 12 mls/hr TITRATE EPIDURAL 05/14/17 04:00 05/14/17 04:38 (NS Flush) 2 ml BID IV FLUSH 05/14/17 21:00 (NS Flush) 2 ml UNSCH PRN IV FLUSH 05/14/17 14:00 (Tylenol) 650 mg Q4H PRN PO 05/14/17 14:00 05/15/17 19:06 (Motrin) 800 mg Q8H PRN PO 05/14/17 14:00 05/16/17 04:59 (Americaine 20% Top Spr) 1 spray Q4H PRN TOPICAL 05/14/17 14:00 (Tucks Pads) 1 applic QID PRN TOPICAL 05/14/17 14:00 ([place]-Colace) 2 tab Q12H PRN PO 05/14/17 14:00 05/15/17 12:12 (Ambien) 5 mg HS PRN PO 05/14/17 21:00 (Mag-Al Plus Susp Liq) 15 ml Q8H PRN PO 05/14/17 14:00 (Zofran Odt) 4 mg Q6H PRN PO 05/14/17 14:00 ([place] 5-325 Mg) 1 tab Q4H PRN PO 05/15/17 12:00 05/16/17 08:52 Assessment/Plan Problem List: (1) 40 weeks gestation of ICD Codes: Z3A.40 - 40 weeks gestation of (2) Vaginal delivery ICD Codes: O80 - Encounter for full-term uncomplicated delivery (3) Fourth degree laceration of perineum during delivery, ICD Codes: O70.3 - Fourth degree perineal laceration during delivery Assessment and Plan PPD #1 Doing well S/P 4th degree tear..Discussed in detail today Will get sitz bath and discussed stool softner for one month Will d/c home tomorrow. Pain is now at 5 will order some [place] Discharge Planning PPD 2: 05/16/17 Doing well home today stool softener and miralax daily RTO 2 weeks Makenzie Davenport MD May 16, 2017 10:40
[2017-05-16] MEDS: DOCUSATE SODIUM 50 MG/SENNA 8.6 MG TAB PO PRN (12:45)
== END 2017-05-16 13:23 | disposition home or self-care (01) | DRG 775 ==
LOC: H2EB 17:41 → H1EA 05-14 16:09
PROVIDERS: ADMIT Obstetrics & Gynecology; ATTEND Obstetrics & Gynecology
PROC: 3E0P7VZ Introduction of Hormone into Female Reproductive, Via Natural or Artificial Opening (ICD-10-PCS; 2017-05-12)
PROC: 10E0XZZ Delivery of Products of Conception, External Approach (ICD-10-PCS; principal; 2017-05-14)
PROC: 0DQP0ZZ Repair Rectum, Open Approach (ICD-10-PCS; 2017-05-14)
PROC: 0W8NXZZ Division of Female Perineum, External Approach (ICD-10-PCS; 2017-05-14)
DX: O48.0 Post-term pregnancy (principal); O70.3 Fourth degree perineal laceration during delivery; O77.0 Labor and delivery complicated by meconium in amniotic fluid; Z37.0 Single live birth; Z3A.40 40 weeks gestation of pregnancy
CPT/HCPCS: 59025; 80307; 81001; 85025; 86900; 86901; G0481; J2175; J2405; J2590; J3010; J7120